=== PATIENT | male | born 1990 | race Caucasian/White ===

== ENCOUNTER 2022-06-10 07:12 | Emergency (ER) | payer BC, SELFPAY ==
[2022-06-10 07:14] VITALS: BP 141/91; PULSE 108; RESP 17; TEMP 37.1; O2SAT 99; BMI 28.7
--- NOTE | 2022-06-10 07:23 | EDS_ITS ---
HPI HPI - GI History of Present Illness Chief Complaint: Nausea/Vomiting Informant: patient Abdominal Pain/Flank Pain Onset: Today (99) Context: Sudden Onset Timing: Continuous Quality: Sharp Location: Epigastric Current Severity: Mild Maximum Severity: Moderate Worsened by: - (Vomiting); Not Worsened By Food or Movement Relieved by: Nothing Nausea/Vomiting/Emesis GI Symptom: Positive for Nausea and Vomiting Onset: Today (99) Quality: Negative for Blood streaks, Coffee ground or Hematemesis Severity: Severe Episodes: 10 Diarrhea/Melena/Hematochezia GI Symptom: Negative for Diarrhea, Melena or Hematochezia Associated Symptoms Associated Symptoms: Negative for Dysuria, Frequency or Hematuria Narrative Narrative: Patient is a 32-year-old male who presents with epigastric abdominal pain with nausea vomiting started 0100. Patient denies hematemesis or coffee-ground emesis. Patient had a normal bowel movement this morning. Patient states she had pizza at 2100. It may have tasted somewhat abnormal. He denies intolerance to greasy or fried foods. Mother had cholecystectomy. he denies pain radiating to his back. Patient does endorse dry mouth and thirst. He denies orthostatic symptoms. He denies contact with anyone who has been ill recently. He denies cardiorespiratory symptoms. Prior similar symptoms: No Recent Illness/Hospitalization: No PFSH PFSH Medical History no medical history no medical history Allergy/AdvReac Type Severity Reaction Status Date / Time walnuts Allergy Unknown unknown Uncoded 06/10/22 07:16 Surgical History History of appendectomy no surgical history Social History (Updated 06/10/22 @ 07:[address] Tiburcio Donis MD) household members: spouse and children Smoking Status: Never smoker alcohol intake: current alcohol intake frequency: a few times a week ROS ROS ED Constitutional Constitutional ED: Denies chills, fever(s), subjective, sweats or weight loss ENT ENT ED: Denies ear pain, rhinorrhea or sore throat Cardiovascular Cardiovascular: Denies chest pain, palpitations or racing heartbeat Respiratory/Chest Respiratory/Chest: Denies cough or dyspnea Gastrointestinal Gastrointestinal: Reports abdominal pain, nausea and vomiting; Denies diarrhea or melena Genitourinary Genitourinary ED: Denies dysuria, hematuria or urinary frequency Musculoskeletal Musculoskeletal: Denies back pain, myalgias or neck pain Neurologic Neurologic: Denies headache(s) or paresthesias Hematologic/Lymphatic Hematologic/Lymphatic: Denies easy bleeding, easy bruising or lymphadenopathy EXAM Physical Exam Const Vital Signs: 06/10/22 07:14 Temperature 98.7 F Temperature Source Temporal Pulse Rate 108 H Respiratory Rate 17 Blood Pressure 141/91 H Blood Pressure Mean 107 Pulse Ox 99 Oxygen Delivery Method Room Air Positive well nourished and well developed General Appearance ED: well developed and NAD; Negative for pallor HEENT Reports TM's clear and dry mucous membranes HEENT Narrative: Uvula midline. No deviation tongue protrusion. Posterior pharynx out erythema or exudate. Tympanic Membrane ED: Yes TM's clear Mouth ED: Yes dry mucous membranes Mouth: dry mucous membranes Eyes PERRL and EOMs intact bilaterally General Eye ED: Negative for pale conjunctiva or scleral icterus Neck no lymphadenopathy, supple and no JVD Resp normal respiratory effort and clear to auscultation bilaterally Cardio regular rhythm, S1 normal heart sound, S2 normal heart sound and no murmurs Rate: tachycardic GI non-distended and no masses; Negative for non-tender Auscultation: hypoactive bowel sounds Palpation: tender epigastric; Negative for guarding, rigid, hepatomegaly or splenomegaly Back/Spine no CVA tenderness Cervical Spine: cervical spine tenderness Neuro CN's II-XII intact bilaterally, moves all extremities, no sensory deficits noted and gait normal Sensorium / Orientation: alert, oriented to person, oriented to place and oriented to time Psych mental status grossly normal Skin no wounds General Skin Exam: Negative for jaundice or pallor MDM MDM MDM Narrative Medical decision making narrative: Presents with nausea and vomiting. Most likely viral illness. Patient was medicated with Zofran and received 1 L of normal saline since clinically is dehydrated. Patient was reassessed at approximately 0828. He was able to drink a can of Sprite. He does have urge to urinate. Plan is to discharge to home. He was given an excuse for work. Discharge Plan Triage Chief Complaint: Nausea/Vomiting ED Provider: Nayely Doniso Dx/Rx/DC Orders Clinical Impression: Moderate nausea and vomiting, Dehydration, mild, Acute epigastric pain Instructions: ED Vomiting (Adult) Primary Care Provider: Care Physician,No Primary Referrals: Jett Najera MD [Med Staff - [employer] [facility] [employer]] - 1-2 Days if not improving NOT,DEFINED [Non-Staff] - Disposition Disposition: Home, Self Care
[2022-06-10] MEDS: Ondansetron 4 MG/2 ML Vial IV (07:30)
[2022-06-10] MEDS: 0.9% Normal Saline 1,000 ML 1000 ML IV (07:30)
== END 2022-06-10 09:00 | disposition home or self-care (01) ==
PROVIDERS: Emergency Provider Emergency Medicine; Visit Provider Emergency Medicine
DX: R11.2 Nausea with vomiting, unspecified (principal); E86.0 Dehydration; R10.13 Epigastric pain
CPT/HCPCS: 96374; 99283; J7030; A4216; J2405